=== PATIENT | male | born 1965 | race Caucasian/White ===

== ENCOUNTER 2016-12-19 21:02 | Emergency (ER) | payer MEDICAID, OTHER ==
[~2016-12-19] VITALS: Ht 170.2 cm; Wt 83.5 kg
[2016-12-19 21:05] VITALS: Ht 170.2 cm; Wt 83.5 kg
[2016-12-19] MEDS ORDERED: CEPHALEXIN 500 MG CAP PO ONE (22:00)
[2016-12-19] MEDS ORDERED: TRIMETHOPRIM/SULFAMETHOX (DS) TAB PO ONE (22:00)
[2016-12-19] MEDS ORDERED: LIDOCAINE 1% (MDV) 20 ML INJ SC ONE (22:00)
[2016-12-19] MEDS ORDERED: CEPH-443 PO (22:14)
[2016-12-19] MEDS ORDERED: IBUP-1542 PO (22:14)
[2016-12-19] MEDS ORDERED: SULF1TAB31 PO (22:14)
--- NOTE | 2016-12-19 22:29 | ERD ---
ER Documentation Chief Complaint Date/Time DATE: 12/19/16 TIME: 22:20 Chief Complaint right knee swelling and pain since this am with blister HPI 51-year-old male complaining of right knee pain and swelling 3 days. He noticed a blister this morning. 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 Able to ambulate. Denies any fall or trauma. Denies chills. Denies history of diabetes or any other medical history. ROS All systems reviewed and are negative except as per history of present illness. Medications Home Meds Active Scripts Sulfamethoxazole/Trimethoprim* (Bactrim Ds* Tablet) 1 Each Tablet, 1 TAB PO BID , #14 TAB Prov:LINDA MADDOX NP 12/19/16 Cephalexin* (Keflex*) 500 Mg Capsule, 500 MG PO QID for 7 Days, CAP Prov:LINDA MADDOX. AUTOMATION TECHNOLOGIST 12/19/16 Ibuprofen* (Motrin*) 600 Mg Tab, 600 MG PO Q6H Y for PAIN AND OR ELEVATED TEMP, #30 TAB Prov:LINDA MADDOX AUTOMATION TECHNOLOGIST 12/19/16 PMhx/Soc Medical and Surgical Hx: pt denies Medical Hx History of Surgery: No Anesthesia Reaction: No Hx Neurological Disorder: No Hx Respiratory Disorders: No Hx Cardiac Disorders: No Hx Psychiatric Problems: No Hx Miscellaneous Medical Probl: No Hx Alcohol Use: No Hx Substance Use: No Hx Tobacco Use: Yes Smoking Status: Current every day smoker Physical Exam Vitals Vital Signs Date Time Temp Pulse Resp B/P Pulse Ox O2 Delivery O2 Flow Rate FiO2 12/19/16 21:05 100.4 94 20 142/66 94 Physical Exam General: Well-developed, well-nourished, conscious and coherent, in no distress Skin: Warm and dry without rash, good texture and turgor Head: Normocephalic without evidence of trauma Eyes: Sclera and conjunctivae normal; pupils equal, round, and reactive to light; extraocular movements are intact Chest: Normal AP diameter. Good expansion without retractions. Nontender. Lungs are clear to auscultate bilaterally with good tidal volume Heart: Regular rate and rhythm. No murmur, rub, or gallops heard Extremities: Anterior right knee erythematous, swollen, warm to touch. A 1.5 cm pustule is present. Full range of motion without pain. Good strength bilaterally. No clubbing, cyanosis, or edema. Peripheral pulses are intact. Sensation intact Neuro: Alert and oriented 4, GCS 15. Cranial nerves grossly intact. Motor and sensory exams nonfocal. Moves all extremities. Speech clear. Gait normal Results 24 hrs Current Medications Medications (Trade) Dose Ordered Sig/Pako Route PRN Reason Start Time Stop Time Status Last Admin Dose Admin Lidocaine (Xylocaine 1% (Mdv) 20 ml) 20 ml ONCE ONCE SC 12/19/16 22:00 12/19/16 22:01 DC Cephalexin (Keflex) 500 mg ONCE ONCE PO 12/19/16 22:00 12/19/16 22:01 DC 12/19/16 21:52 Trimethoprim/ Sulfamethoxazole (Bactrim (Ds)) 1 tab ONCE ONCE PO 12/19/16 22:00 12/19/16 22:01 DC 12/19/16 21:52 Procedures/[facility] Procedure note: Incision and Drainage Verbal consent obtained for incision and drainage of patient's abscess. The area was prepped with Betadine. Lidocaine 1% was infiltrated for local anesthesia. After appropriate anesthesia, incision was made using #11 blade. Small amount of purulent discharge was drained from the abscess. The abscess was probed for loculation. The wound was then cleaned and dressed. Patient tolerated procedure well. Medical decision-making: Well-appearing 51-year-old male present ED with right knee pain and swelling. Likely patient has a septic bursitis. Low suspicion for septic joint, as patient is able to have full range of motion of the right knee without pain. Patient appears well, stable for discharge and outpatient management. Medical decision making shared with patient and family. Education provided to patient and family. Patient and family expressed understanding of the plan. Medications on discharge: Keflex, Bactrim DS, ibuprofen. Follow-up: Return to the ED in 2 days for wound check and follow-up. The case was reviewed and discussed with Dr. Johnston, who also examined the patient, who agrees with the plan of care including labs, treatment, and advanced imaging as appropriate. Disclaimer: Inadvertent spelling and grammatical errors are likely due to EHR/ dictation software use and do not reflect on the overall quality of patient care. Also, please note that the electronic time recorded on this note does not necessarily reflect the actual time of the patient encounter. Departure Diagnosis: Primary Impression: Septic infrapatellar bursitis of right knee Condition: Stable Patient Instructions: Cellulitis, Abscess, Incision And Drainage Ref[facility] Usted se castelan hecho un examen mdico de control que le indica que no est en tyson condicin que requiera tratamiento urgente en el Departamento de Emergencia. Un estudio ms profundo y el tratamiento de cartwright condicin pueden esperar sin ningn riesgo hasta que usted sea atendida/o en el consultorio de cartwright mdico o tyson cl adrien. Es responsabilidad suya arreglar tyson allison para el seguimiento del nilson. MANEJO DE CONDICIONES NO URGENTES EN EL FUTURO 1) Si usted tiene un mdico de atencin primaria: Usted debera llamar a cartwright mdico de atencin primaria antes de venir al departamento de emergencia. Despus de las horas de consultorio, cartwright doctor o cartwright asociado/a est disponible por telfono. El mdico o enfermero de eugenio en el servicio telefnico puede asesorarle por love medio para atender el problema, o nilson contrario se puede programar tyson allison. 2) Si usted no tiene un mdico de atencin primaria: Llame al mdico o clnica de referencia que aparece abajo prieto las horas de consultorio para hacer tyson allison para que le vean. CLINICAS: [facility] [phone] [facility] [phone] [address] [facility] [phone] [address] [facility]. [place] [id number] [phone] [facility]. [facility] [phone] [id number] [facility]. [phone] [address] Additional Instructions: Regrese a estas instalaciones dentro de [facility] [place] para un examen de seguimiento.Regrese antes si cartwright condicin se empeora. LINDA MADDOX. AUTOMATION TECHNOLOGIST Dec 19, 2016 22:29
[2016-12-22] MEDS ORDERED: CLIN-73 PO (00:41)
== END 2016-12-19 22:25 | disposition home or self-care (01) ==
LOC: FTE 21:02
DX: M71.161 Other infective bursitis, right knee (principal); F17.210 Nicotine dependence, cigarettes, uncomplicated
CPT/HCPCS: 10060; Z7502; Z7610

== ENCOUNTER 2016-12-21 18:55 | Emergency (ER) | END 2016-12-22 01:30 | disposition home or self-care (01) | DX: L03.115 Cellulitis of right lower limb (principal); F17.210 Nicotine dependence, cigarettes, uncomplicated | CPT/HCPCS: 96374; 96375; Z7502 ==

== ENCOUNTER 2016-12-22 16:40 | Inpatient (IN) | payer MEDICAID ==
[~2016-12-22] VITALS: Ht 175.3 cm; Wt 88.9 kg
[~2016-12-22 16:40] MED LIST: CEPH-443 PO; CLIN-73 PO; IBUP-1542 PO; SULF1TAB31 PO
[2016-12-22 16:49] VITALS: Ht 175.3 cm; Wt 88.9 kg
[2016-12-22] MEDS ORDERED: SODIUM CHLORIDE 0.9% 1L BAG IV* STA (17:55)
[2016-12-22] MEDS ORDERED: CEFEPIME 2GM/50 ML (PMX) 50 ML IVPB STA (17:55)
[2016-12-22] MEDS ORDERED: ACETAMINOPHEN 325 MG TAB PO ONE (18:00)
[2016-12-22] MEDS ORDERED: VANCOMYCIN 1 GM (PMX) 250 ML IVPB ONE (18:00)
[2016-12-22 18:50] LABS: BASOPHIL # 0.1 10^3/ul (0.0-0.1); BASOPHILS % 0.4 % (0.0-2.0); EOSINOPHILS # 0.1 10^3/ul (0.0-0.5); EOSINOPHILS % 0.7 % (0.0-7.0); HEMATOCRIT 36.5 % (42.0-52.0); LYMPHOCYTES # 1.5 10^3/ul (0.8-2.9); LYMPHOCYTES % 11.2 % (15.0-51.0); MEAN CORPUSCULAR HEMOGLOBIN 30.2 pg (29.0-33.0); MEAN CORPUSCULAR HGB CONC 32.9 g/dl (32.0-37.0); MEAN CORPUSCULAR VOLUME 91.7 fl (82.0-101.0); MEAN PLATELET VOLUME 9.2 fl (7.4-10.4); MONOCYTE # 1.2 10^3/ul (0.3-0.9); NEUTROPHIL # 10.1 10^3/ul (1.6-7.5); PLATELET COUNT 364 10^3/UL (140-415); RED BLOOD COUNT 3.98 10^6/ul (4.70-6.10); RED CELL DISTRIBUTION WIDTH 13.1 % (11.5-14.5)
[2016-12-22] MEDS ORDERED: ACETAMINOPHEN 325 MG TAB PO PRN (19:00)
[2016-12-22] MEDS ORDERED: ONDANSETRON 4 MG INJ IV PRN ×2 (19:00→21:00)
[2016-12-22 19:06] LABS: INR 1.08; PT RATIO 1.1
[2016-12-22 19:07] LABS: PARTIAL THROMBOPLASTIN TIME 40.6 Sec (25.0-35.0)
[2016-12-22 19:12] LABS: ALANINE AMINOTRANSFERASE 70 IU/L (13-69); ALBUMIN 3.1 g/dl (3.3-4.9); ALBUMIN/GLOBULIN RATIO 0.96; ALKALINE PHOSPHATASE 125 IU/L (42-121); ANION GAP 17 (8-16); ASPARTATE AMINO TRANSFERASE 67 IU/L (15-46); BLOOD UREA NITROGEN 8 mg/dl (7-20); CALCIUM 8.3 mg/dl (8.4-10.2); CARBON DIOXIDE 26 mmol/L (21-31); CHLORIDE 101 mmol/L (97-110); CREATININE 0.72 mg/dl (0.61-1.24); GLUCOSE 106 mg/dl (70-220); POTASSIUM 3.6 mmol/L (3.5-5.1); SODIUM 140 mmol/L (135-144); TOTAL PROTEIN 6.3 g/dl (6.1-8.1)
[2016-12-22 19:16] VITALS: PULSE 74; TEMP 99
[2016-12-22 19:27] LABS: TROPONIN-I < 0.012 ng/ml (0.00-0.12)
[2016-12-22 20:05] VITALS: BP 115/56; RESP 18
--- NOTE | 2016-12-22 20:58 | ERA ---
ER Documentation Chief Complaint Date/Time DATE: 12/22/16 TIME: 20:56 Chief Complaint 3R VISIT FOR F/U RIGHT KNEE SWELLING, PER PT IMPROVED HPI Patient is a 51-year-old male who presents with right knee and leg swelling. This is been going on for approximately 1 week and he has had 3 visits to the ER for the same already. On the first visit he had an incision and drainage performed to a preseptal bursitis and was given Bactrim and Keflex which he has been taking. Unfortunately his infection is gotten worse and now it is tracking down his leg. He has had fevers as well. The patient has pain in the right leg. ROS All systems reviewed and are negative except as per history of present illness. Medications Home Meds Active Scripts Clindamycin Hcl* (Clindamycin Hcl*) 300 Mg Capsule, 300 MG PO TID for 10 Days, CAP Prov:PERRI LIMA TEXTILE CONSERVATOR 12/22/16 Sulfamethoxazole/Trimethoprim* (Bactrim Ds* Tablet) 1 Each Tablet, 1 TAB PO BID , #14 TAB Prov:LINDA MADDOX. TEXTILE CONSERVATOR 12/19/16 Cephalexin* (Keflex*) 500 Mg Capsule, 500 MG PO QID for 7 Days, CAP Prov:LINDA MADDOX. TEXTILE CONSERVATOR 12/19/16 Ibuprofen* (Motrin*) 600 Mg Tab, 600 MG PO Q6H Y for PAIN AND OR ELEVATED TEMP, #30 TAB Prov:LINDA MADDOX. TEXTILE CONSERVATOR 12/19/16 Allergies Allergies: Coded Allergies: No Known Allergy (Unverified , 12/21/16) PMhx/Soc Medical and Surgical Hx: pt denies Medical Hx, pt denies Surgical Hx History of Surgery: No Anesthesia Reaction: No Hx Neurological Disorder: No Hx Respiratory Disorders: No Hx Cardiac Disorders: No Hx Psychiatric Problems: No Hx Miscellaneous Medical Probl: No Hx Alcohol Use: No Hx Substance Use: No Hx Tobacco Use: Yes Smoking Status: Current every day smoker FmHx Family History: No diabetes Physical Exam Vitals Vital Signs Date Time Temp Pulse Resp B/P Pulse Ox O2 Delivery O2 Flow Rate FiO2 12/22/16 16:49 100.5 88 18 121/85 99 Physical Exam Const: Mild distress secondary to pain Head: Atraumatic Eyes: Normal Conjunctiva ENT: Normal External Ears, Nose and Mouth. Neck: Full range of motion..~ No meningismus. Resp: Clear to auscultation bilaterally Cardio: Regular rate and rhythm, no murmurs Abd: Soft, non tender, non distended. Normal bowel sounds Skin: Cellulitis of the right knee down the right carrillo with warm to touch and induration, no obvious abscess Back: No midline or flank tenderness Ext: No cyanosis, or edema Neur: Awake and alert Psych: Normal Mood and Affect Result Diagram: 12/22/16182912/22/161829 Results 24 hrs Laboratory Tests Test 12/22/16 18:30 White Blood Count 13.010^3/ul Red Blood Count 3.9810^6/ul Hemoglobin 12.0g/dl Hematocrit 36.5% Mean Corpuscular Volume 91.7fl Mean Corpuscular Hemoglobin 30.2pg Mean Corpuscular Hemoglobin Concent 32.9g/dl Red Cell Distribution Width 13.1% Platelet Count 52629^3/UL Mean Platelet Volume 9.2fl Neutrophils % 78.0% Lymphocytes % 11.2% Monocytes % 9.0% Eosinophils % 0.7% Basophils % 0.4% Nucleated Red Blood Cells % 0.0/100WBC Neutrophils # 10.110^3/ul Lymphocytes # 1.510^3/ul Monocytes # 1.210^3/ul Eosinophils # 0.110^3/ul Basophils # 0.110^3/ul Nucleated Red Blood Cells # 0.010^3/ul Prothrombin Time 14.0Sec Prothrombin Time Ratio 1.1 INR International Normalized Ratio 1.08 Activated Partial Thromboplast Time 40.6Sec Sodium Level 140mmol/L Potassium Level 3.6mmol/L Chloride Level 101mmol/L Carbon Dioxide Level 26mmol/L Anion Gap 17 Blood Urea Nitrogen 8mg/dl Creatinine 0.72mg/dl Glucose Level 106mg/dl Lactic Acid Level 1.3mmol/L Calcium Level 8.3mg/dl Total Bilirubin 0.0mg/dl Direct Bilirubin 0.00mg/dl Indirect Bilirubin 0.0mg/dl Aspartate Amino Transf (AST/SGOT) 67IU/L Alanine Aminotransferase (ALT/SGPT) 70IU/L Alkaline Phosphatase 125IU/L Troponin I < 0.012ng/ml Total Protein 6.3g/dl Albumin 3.1g/dl Globulin 3.20g/dl Albumin/Globulin Ratio 0.96 Current Medications Medications (Trade) Dose Ordered Sig/Pako Route PRN Reason Start Time Stop Time Status Last Admin Dose Admin Sodium Chloride 2670 ml 2,670 ml BOLUS OVER 2 HOURS STAT IV* 12/22/16 17:55 12/22/16 17:57 DC 12/22/16 18:50 Cefepime HCl 50 ml @ 100 mls/hr ONCE STAT IVPB 12/22/16 17:55 12/22/16 18:24 DC 12/22/16 18:50 Vancomycin HCl (Vancocin) 250 ml @ 125 mls/hr ONCE ONCE IVPB 12/22/16 18:00 12/22/16 19:59 DC 12/22/16 19:32 Acetaminophen (Tylenol Tab) 650 mg ONCE ONCE PO 12/22/16 18:00 12/22/16 18:01 DC 12/22/16 18:54 Procedures/MDM Patient is a 51-year-old male who presents with acute cellulitis of the right lower extremity. He has failed outpatient treatment. At this point I doubt sepsis. The patient was given broad-spectrum antibiotics with vancomycin and cefepime as he has failed outpatient treatment. The patient will be admitted to the care of Dr. Carter from the panel team to a medical surgical bed for continued IV antibiotics. Departure Diagnosis: Primary Impression: Failure of outpatient treatment Additional Impression: Cellulitis Qualified Code: L03.115 - Cellulitis of right lower extremity Condition: LUIS Esteban MD Dec 22, 2016 20:58
[2016-12-22] MEDS ORDERED: morphine 4 MG/ML VIAL IV PRN (21:00)
[2016-12-22] MEDS ORDERED: VANCOMYCIN IV PER PHARMACY XX SCH (21:00)
[2016-12-22] MEDS ORDERED: VANCOMYCIN 750 MG in SOD CHLORIDE 0.9% 150 ML IVPB ONE (22:30)
[2016-12-23 02:10] VITALS: BP 125/60; RESP 20
[2016-12-23 08:23] VITALS: BP 127/61; RESP 20
[2016-12-23] MEDS: VANCOMYCIN 1.25 GM in SOD CHLORIDE 0.9% 250 ML IVPB SCH ×2 (09:05→21:52)
--- NOTE | 2016-12-23 09:33 | HP ---
Date/Time of Note Date/Time of Note DATE: 12/23/16 TIME: 09:21 Assessment/Plan VTE Prophylaxis VTE Prophylaxis Intervention: LMWH Lines/Catheters [facility] Saline Lock Assessment/Plan Assessment/Plan 1. Sepsis, as evidenced by fever and leukocytosis: secondary to right knee cellulitis/prepatellar bursitis - will attempt to send wound culture. Will follow up on the urine culture and blood culture sent in the ER. - Will be placed on broad-spectrum antibiotic. Will place an ID consult -We will order right lower extremity Doppler ultrasound to rule out DVT 2. Elevated transaminases: We will follow up on the a.m. lab so for now will just monitor. Additional workup including imaging as needed HPI/ROS Admit Date/Time Admit Date/Time Dec 22, 2016 at 18:38 Hx of Present Illness This is a 51-year-old male with no significant past medical history who presented to the emergency department complaining of right knee wound, swelling and tenderness. He also reported swelling involving his right carrillo. Patient was seen here in our ER a couple of times over the past 4 days for similar issue. Initially he was discharged on Keflex and Bactrim after an I&D was performed with instruction to come back within 2 days if no improvement or for worsening symptom. He came back 2 days ago saying that it did actually got worse. At that time his Keflex and Bactrim were switched for clindamycin. Patient has now returned to ER after 2 days because he is not seeing any improvement. X-ray from 2 days ago showed No fracture or dislocation, small joint effusion and periarticular soft tissue swelling greatest anteriorly. In the ER today, he was febrile with a temperature 100.5 and had a white count of 13,000. PMH/Family/Social Social History Smoking Status: Current every day smoker Exam/Review of Systems Vital Signs Vitals Vital Signs Date Time Temp Pulse Resp B/P Pulse Ox O2 Delivery O2 Flow Rate FiO2 12/23/16 08:23 98.5 77 20 127/61 96 12/22/16 19:16 Room Air Intake and Output 12/22/16 12/22/16 12/23/16 15:00 23:00 07:00 Intake Total 250 ml 600 ml Balance 250 ml 600 ml Exam Constitutional: alert, oriented, well developed Head: atraumatic, normocephalic Eyes: EOMI, PERRL Respiratory: clear to auscultation, normal air movement Cardiovascular: nl pulses, regular rate and rhythm Gastrointestinal: non-tender, soft Extremities: other (There is about 3+ pitting edema in the right lower extremity. There is a small open wound on the right knee, which appears wet with no significant drainage) Labs Result Diagram: 12/22/16182912/22/161829 Medications Medications Current Medications Morphine Sulfate (morphine) 2 mg Q4H PRN IV pain Last administered on 12/23/16 09:10; Admin Dose 2 MG; Start 12/22/16 at 21:00 Ondansetron HCl 4 mg 4 mg Q6H PRN IV NAUSEA AND/OR VOMITING; Start 12/22/16 at 21:00 Vancomycin HCl 1.25 gm/Sodium Chloride 250 ml @ 83.333 mls/ hr Q12H IVPB Last administered on 12/23/16 09:05; Admin Dose 83.333 MLS/HR; Start 12/23/16 at 08:00 Cefepime HCl (Maxipime 1gm/50 ml (Pmx)) 50 ml @ 100 mls/hr Q12 IVPB ; Start 12/23/16 at 09:30 MAUREEN MAST MD Dec 23, 2016 09:31
[2016-12-23] MEDS: CEFEPIME 1GM/50 ML (PMX) 50 ML IVPB SCH ×2 (10:10→20:49)
[2016-12-23] MEDS: ENOXAPARIN 40 MG/0.4 ML SYG SC SCH (10:11)
[2016-12-23 10:21] LABS: BASOPHIL # 0.1 10^3/ul (0.0-0.1); BASOPHILS % 0.4 % (0.0-2.0); EOSINOPHILS # 0.1 10^3/ul (0.0-0.5); EOSINOPHILS % 0.9 % (0.0-7.0); HEMOGLOBIN 12.4 g/dl (14.0-18.0); LYMPHOCYTES # 1.8 10^3/ul (0.8-2.9); LYMPHOCYTES % 14.8 % (15.0-51.0); MEAN CORPUSCULAR HEMOGLOBIN 30.1 pg (29.0-33.0); MEAN CORPUSCULAR HGB CONC 32.6 g/dl (32.0-37.0); MEAN CORPUSCULAR VOLUME 92.2 fl (82.0-101.0); MEAN PLATELET VOLUME 8.9 fl (7.4-10.4); MONOCYTES % 8.3 % (0.0-11.0); NEUTROPHIL # 9.1 10^3/ul (1.6-7.5); NEUTROPHILS % 74.8 % (39.0-77.0); PLATELET COUNT 383 10^3/UL (140-415); RED BLOOD COUNT 4.12 10^6/ul (4.70-6.10); RED CELL DISTRIBUTION WIDTH 13.3 % (11.5-14.5); WHITE BLOOD COUNT 12.1 10^3/ul (4.8-10.8)
[2016-12-23 10:39] LABS: ALBUMIN 3.4 g/dl (3.3-4.9); ALBUMIN/GLOBULIN RATIO 1.06; BILIRUBIN,INDIRECT 0.1 mg/dl (0-1.1); BILIRUBIN,TOTAL 0.1 mg/dl (0.2-1.3); CALCIUM 8.5 mg/dl (8.4-10.2); CREATININE 0.69 mg/dl (0.61-1.24); POTASSIUM 3.7 mmol/L (3.5-5.1); TOTAL PROTEIN 6.6 g/dl (6.1-8.1)
--- NOTE | 2016-12-23 10:40 | RADRPT ---
PROCEDURE: US Lower extremity Venous. CLINICAL INDICATION: Right leg edema TECHNIQUE: Multiple sonographic images of the right lower extremity deep venous system was obtaine d utilizing grayscale, color-flow, compressive sonography and doppler imaging with augmentation. Th e images were reviewed on a PACS workstation. COMPARISON: None. FINDINGS: There is normal compressibility and flow within the right common femoral, femoral, posterior tibial, peroneal and popliteal veins. RPTAT: AA IMPRESSION: No sonographic evidence for deep venous thrombosis. .Darvin Watkins MD, MD Date Time Electronically viewed and signed by .Darvin Watkins MD, on 12/23/2016 10:40 .S/
[2016-12-23] MEDS: SILVER SULFADIAZINE 1% 25 GM CR TOP SCH (14:35)
--- NOTE | 2016-12-23 14:50 | PN ---
Date/Time of Note Date/Time of Note DATE: 12/23/16 TIME: 14:42 Assessment/Plan VTE Prophylaxis VTE Prophylaxis Intervention: LMWH Lines/Catheters [facility] Saline Lock Assessment/Plan Chief Complaint/Hosp Course Assessment and plan:51-year-old male with no significant past medical history who presented to the emergency department complaining of right knee wound, cellulitis swelling and tenderness with signs of sepsis. 1. Sepsis: Likely secondary to patient's knee fluid and cellulitis. Ultrasound of lower extremity was negative for DVT. Patient failed outpatient antibiotic treatment. -Continue broad-spectrum antibiotics. Follow-up final culture results. Tylenol as needed pain and fevers. Pain control medications as needed. 2. Elevated LFTs colons trending down close to normal levels now. -Will consider right upper extremity ultrasound. Also check Hep panel. Problems: Exam/Review of Systems Vital Signs Vitals Vital Signs Date Time Temp Pulse Resp B/P Pulse Ox O2 Delivery O2 Flow Rate FiO2 12/23/16 08:23 98.5 77 20 127/61 96 12/22/16 19:16 Room Air Intake and Output 12/22/16 12/22/16 12/23/16 15:00 23:00 07:00 Intake Total 250 ml 600 ml Balance 250 ml 600 ml Exam Constitutional: alert, oriented, well developed Head: atraumatic, normocephalic Eyes: EOMI, PERRL Respiratory: clear to auscultation, normal air movement Cardiovascular: nl pulses, regular rate and rhythm Gastrointestinal: non-tender, soft Extremities: other (There is about 2+ pitting edema in the right lower extremity. Positive warmth and tenderness on anterior lower extremity, there is a small open wound on the right knee, covered with bandage, no significant drainage) Results Result Diagram: 12/23/16 0956 12/23/16 0956 Results 24 hrs Laboratory Tests Test 12/22/16 18:30 12/22/16 20:43 12/22/16 22:38 12/23/16 09:56 White Blood Count 13.0 H 12.1 H Red Blood Count 3.98 L 4.12 L Hemoglobin 12.0 L 12.4 L Hematocrit 36.5 L 38.0 L Mean Corpuscular Volume 91.7 92.2 Mean Corpuscular Hemoglobin 30.2 30.1 Mean Corpuscular Hemoglobin Concent 32.9 32.6 Red Cell Distribution Width 13.1 13.3 Platelet Count 364 383 Mean Platelet Volume 9.2 8.9 Neutrophils % 78.0 H 74.8 Lymphocytes % 11.2 L 14.8 L Monocytes % 9.0 8.3 Eosinophils % 0.7 0.9 Basophils % 0.4 0.4 Nucleated Red Blood Cells % 0.0 0.0 Neutrophils # 10.1 H 9.1 H Lymphocytes # 1.5 1.8 Monocytes # 1.2 H 1.0 H Eosinophils # 0.1 0.1 Basophils # 0.1 0.1 Nucleated Red Blood Cells # 0.0 0.0 Prothrombin Time 14.0 Prothrombin Time Ratio 1.1 INR International Normalized Ratio 1.08 Activated Partial Thromboplast Time 40.6 H Sodium Level 140 143 Potassium Level 3.6 3.7 Chloride Level 101 106 Carbon Dioxide Level 26 25 Anion Gap 17 H 16 Blood Urea Nitrogen 8 7 Creatinine 0.72 0.69 Glucose Level 106 95 Lactic Acid Level 1.3 0.8 1.3 Calcium Level 8.3 L 8.5 Total Bilirubin 0.0 L 0.1 L Direct Bilirubin 0.00 0.00 Indirect Bilirubin 0.0 0.1 Aspartate Amino Transf (AST/SGOT) 67 H 41 Alanine Aminotransferase (ALT/SGPT) 70 H 64 Alkaline Phosphatase 125 H 124 H Troponin I < 0.012 Total Protein 6.3 6.6 Albumin 3.1 L 3.4 Globulin 3.20 3.20 Albumin/Globulin Ratio 0.96 1.06 Medications Medications Current Medications Morphine Sulfate (morphine) 2 mg Q4H PRN IV pain Last administered on 12/23/16 09:10; Admin Dose 2 MG; Start 12/22/16 at 21:00 Ondansetron HCl 4 mg 4 mg Q6H PRN IV NAUSEA AND/OR VOMITING; Start 12/22/16 at 21:00 Vancomycin HCl 1.25 gm/Sodium Chloride 250 ml @ 83.333 mls/ hr Q12H IVPB Last administered on 12/23/16 09:05; Admin Dose 83.333 MLS/HR; Start 12/23/16 at 08:00 Cefepime HCl (Maxipime 1gm/50 ml (Pmx)) 50 ml @ 100 mls/hr Q12 IVPB Last administered on 12/23/16 10:10; Admin Dose 100 MLS/HR; Start 12/23/16 at 09:30 Silver Sulfadiazine (Thermazene 1% 25 Gm) 1 applic DAILY TOP Last administered on 12/23/16 14:35; Admin Dose 1 APPLIC; Start 12/23/16 at 11:00 Enoxaparin Sodium (Lovenox) 40 mg DAILY SC Last administered on 12/23/16 10:11 ; Admin Dose 40 MG; Start 12/23/16 at 09:30 Miscellaneous Information (*Rx Drug Level Order Reminder*) VANCOMYIN 12/24 AT 0700 ONCE ONCE XX ; Start 12/24/16 at 07:00; Stop 12/24/16 at 07:01 JARAD GILBERT Dec 23, 2016 14:50
[2016-12-23 15:44] VITALS: BP 133/63; RESP 20
[2016-12-23 16:14] LABS: HAAIG REFLEX REFLEX FILED
[2016-12-23 17:48] LABS: HEPATITIS B CORE ANTIBODY NEGATIVE (NEGATIVE)
[2016-12-23 20:04] VITALS: BP 130/60; RESP 18
[2016-12-23] MEDS ORDERED: HYDROCODONE/APAP (5/325) TAB PO PRN (21:00)
[2016-12-23] MEDS: ACETAMINOPHEN 325 MG TAB PO PRN (21:52)
[2016-12-24 02:05] VITALS: BP 121/59; RESP 17
[2016-12-24 07:21] LABS: BASOPHIL # 0.1 10^3/ul (0.0-0.1); BASOPHILS % 0.5 % (0.0-2.0); EOSINOPHILS # 0.3 10^3/ul (0.0-0.5); EOSINOPHILS % 2.8 % (0.0-7.0); HEMATOCRIT 38.8 % (42.0-52.0); HEMOGLOBIN 12.8 g/dl (14.0-18.0); LYMPHOCYTES # 2.2 10^3/ul (0.8-2.9); MEAN CORPUSCULAR HEMOGLOBIN 30.4 pg (29.0-33.0); MEAN CORPUSCULAR VOLUME 92.2 fl (82.0-101.0); MEAN PLATELET VOLUME 8.7 fl (7.4-10.4); MONOCYTE # 0.9 10^3/ul (0.3-0.9); MONOCYTES % 8.3 % (0.0-11.0); NEUTROPHIL # 7.4 10^3/ul (1.6-7.5); NEUTROPHILS % 67.5 % (39.0-77.0); PLATELET COUNT 410 10^3/UL (140-415); RED BLOOD COUNT 4.21 10^6/ul (4.70-6.10); WHITE BLOOD COUNT 10.9 10^3/ul (4.8-10.8)
--- NOTE | 2016-12-24 07:37 | RADRPT ---
PROCEDURE: US Abdomen (right upper quadrant). CLINICAL INDICATION: Elevated liver function tests. TECHNIQUE: Multiple real-time longitudinal and transverse images of the right upper quadrant of th e abdomen were acquired utilizing a curved array transducer. Images were reviewed on a high-resoluti on PACS workstation. COMPARISON: None FINDINGS: The liver is normal in size and demonstrate slight coarsening of the echotexture suggesting mild joleen atosis. without focal mass or intrahepatic biliary dilatation. There is normal hepatopedal flow wit hin the main portal vein. The gallbladder is well displayed without filling defects or wall thicken ing. The common bile duct measures 3.1 mm in maximal dimension. The visualized portions of the florentino creas are unremarkable with obscuration of the tail of the pancreas. No free fluid is identified. The right kidney measures 11.3 cm in length. There is normal echogenicity within the right kidney. There is no perinephric fluid collection. No hydronephrosis, mass, or calculus is seen. IMPRESSION: 1. Mildly coarsened echotexture of the liver parenchyma suggesting mild hepatic steatosis. 2. The gallbladder, pancreas and biliary tree appear unremarkable. RPTAT: AACC Physician Bree Date Time Electronically viewed and signed by Physician Bree on 12/24/2016 07:37 SELENE/
[2016-12-24 08:00] VITALS: BP 133/68; RESP 20
[2016-12-24 08:25] LABS: CALCIUM 8.6 mg/dl (8.4-10.2); CREATININE 0.7 mg/dl (0.61-1.24); POTASSIUM 3.8 mmol/L (3.5-5.1)
[2016-12-24] MEDS: CEFEPIME 1GM/50 ML (PMX) 50 ML IVPB SCH ×2 (08:31→20:39)
[2016-12-24] MEDS: SILVER SULFADIAZINE 1% 25 GM CR TOP SCH (08:31)
[2016-12-24] MEDS: ENOXAPARIN 40 MG/0.4 ML SYG SC SCH (08:32)
[2016-12-24] MEDS: VANCOMYCIN 1.25 GM in SOD CHLORIDE 0.9% 250 ML IVPB SCH (08:36)
[2016-12-24 12:30] VITALS: BP_SYST 107; BP_SYST 119; BP_DIAS 58; BP_DIAS 63; RESP 18
[2016-12-24] MEDS ORDERED: VANCOMYCIN 1 GM in NS 250 ML IVPB SCH ×2 (16:00→18:00)
--- NOTE | 2016-12-24 16:16 | PN ---
Date/Time of Note Date/Time of Note DATE: 12/24/16 TIME: 16:14 Assessment/Plan VTE Prophylaxis VTE Prophylaxis Intervention: LMWH Lines/Catheters IV [facility] Urinary Cath still in place: No Assessment/Plan Chief Complaint/Hosp Course Assessment and plan:51-year-old male with no significant past medical history who presented to the emergency department complaining of right knee wound, cellulitis swelling and tenderness with signs of sepsis. 1. Sepsis: Likely secondary to patient's knee fluid and cellulitis. Ultrasound of lower extremity was negative for DVT. Patient failed outpatient antibiotic treatment. Overall improving cellulitis. Sepsis has resolved -Continue broad-spectrum antibiotics. Follow-up final culture results. Tylenol as needed pain and fevers. Pain control medications as needed. 2. Elevated LFTs -down to normal levels now. Hepatitis panel negative. Right upper quadrant ultrasound also showed mild fatty liver - Continue to monitor for now Dispo: Likely home in 24 hours if redness and swelling symptoms improved. Problems: Subjective 24 Hr Interval Summary Free Text/Dictation Patient with less right lower extremity pain. Able to ambulate in the hallway. Exam/Review of Systems Vital Signs Vitals Vital Signs Date Time Temp Pulse Resp B/P Pulse Ox O2 Delivery O2 Flow Rate FiO2 12/24/16 12:30 98.6 88 18 119/63 96 12/22/16 19:16 Room Air Intake and Output 12/23/16 12/23/16 12/24/16 15:00 23:00 07:00 Intake Total 1250 ml 1030 ml Balance 1250 ml 1030 ml Exam Constitutional: alert, oriented, well developed Head: atraumatic, normocephalic Eyes: EOMI, PERRL Respiratory: clear to auscultation, normal air movement Cardiovascular: nl pulses, regular rate and rhythm Gastrointestinal: non-tender, soft Extremities: other (There is about 2+ pitting edema in the right lower extremity. Positive warmth and tenderness on anterior lower extremity, there is a small open wound on the right knee, covered with bandage, no significant drainage) Results Result Diagram: 12/24/16 0659 12/24/16 0659 Results 24 hrs Laboratory Tests Test 12/24/16 06:59 White Blood Count 10.9 H Red Blood Count 4.21 L Hemoglobin 12.8 L Hematocrit 38.8 L Mean Corpuscular Volume 92.2 Mean Corpuscular Hemoglobin 30.4 Mean Corpuscular Hemoglobin Concent 33.0 Red Cell Distribution Width 13.0 Platelet Count 410 Mean Platelet Volume 8.7 Neutrophils % 67.5 Lymphocytes % 20.0 Monocytes % 8.3 Eosinophils % 2.8 Basophils % 0.5 Nucleated Red Blood Cells % 0.0 Neutrophils # 7.4 Lymphocytes # 2.2 Monocytes # 0.9 Eosinophils # 0.3 Basophils # 0.1 Nucleated Red Blood Cells # 0.0 Sodium Level 144 Potassium Level 3.8 Chloride Level 106 Carbon Dioxide Level 25 Anion Gap 17 H Blood Urea Nitrogen 7 Creatinine 0.70 Glucose Level 94 Calcium Level 8.6 Vancomycin Level Trough 6.1 L Medications Medications Current Medications Morphine Sulfate (morphine) 2 mg Q4H PRN IV pain Last administered on 12/23/16 09:10; Admin Dose 2 MG; Start 12/22/16 at 21:00 Ondansetron HCl 4 mg 4 mg Q6H PRN IV NAUSEA AND/OR VOMITING; Start 12/22/16 at 21:00 Cefepime HCl (Maxipime 1gm/50 ml (Pmx)) 50 ml @ 100 mls/hr Q12 IVPB Last administered on 12/24/16 08:31; Admin Dose 100 MLS/HR; Start 12/23/16 at 09:30 Silver Sulfadiazine (Thermazene 1% 25 Gm) 1 applic DAILY TOP Last administered on 12/24/16 08:31; Admin Dose 1 APPLIC; Start 12/23/16 at 11:00 Enoxaparin Sodium (Lovenox) 40 mg DAILY SC Last administered on 12/24/16 08:32 ; Admin Dose 40 MG; Start 12/23/16 at 09:30 Acetaminophen (Tylenol Tab) 650 mg Q6H PRN PO PAIN AND OR ELEVATED TEMP Last administered on 12/23/16 21:52; Admin Dose 650 MG; Start 12/23/16 at 21:00 Acetaminophen/ Hydrocodone Bitart ([place] (5/325)) 1 tab Q4H PRN PO PAIN LEVEL 7 -10; Start 12/23/16 at 21:00 Miscellaneous Information VANCOMYCIN TROUGH 12/25 AT 1500 ONCE ONCE XX ; Start at 15:00; Stop 12/25/16 at 15:01 Vancomycin HCl (Vancocin) 250 ml @ 125 mls/hr Q8H IVPB ; Start 12/24/16 at 16:00 JARAD GILBERT Dec 24, 2016 16:15
[2016-12-24] MEDS: VANCOMYCIN 1 GM in NS 250 ML IVPB SCH (16:29)
[2016-12-24 20:30] VITALS: BP 136/62; RESP 18
[2016-12-24] MEDS: ACETAMINOPHEN 325 MG TAB PO PRN (20:44)
[2016-12-25] MEDS: VANCOMYCIN 1 GM in NS 250 ML IVPB SCH ×2 (00:18→09:14)
[2016-12-25 06:23] LABS: BASOPHIL # 0.1 10^3/ul (0.0-0.1); BASOPHILS % 0.9 % (0.0-2.0); EOSINOPHILS # 0.3 10^3/ul (0.0-0.5); HEMATOCRIT 42.7 % (42.0-52.0); HEMOGLOBIN 13.8 g/dl (14.0-18.0); LYMPHOCYTES # 2.8 10^3/ul (0.8-2.9); LYMPHOCYTES % 27.4 % (15.0-51.0); MEAN CORPUSCULAR HEMOGLOBIN 29.8 pg (29.0-33.0); MEAN CORPUSCULAR HGB CONC 32.3 g/dl (32.0-37.0); MEAN CORPUSCULAR VOLUME 92.2 fl (82.0-101.0); MEAN PLATELET VOLUME 9.2 fl (7.4-10.4); MONOCYTE # 0.8 10^3/ul (0.3-0.9); MONOCYTES % 7.8 % (0.0-11.0); NEUTROPHILS % 59.6 % (39.0-77.0); PLATELET COUNT 491 10^3/UL (140-415); RED BLOOD COUNT 4.63 10^6/ul (4.70-6.10); WHITE BLOOD COUNT 10.1 10^3/ul (4.8-10.8)
[2016-12-25 06:44] LABS: CREATININE 0.67 mg/dl (0.61-1.24); POTASSIUM 4.2 mmol/L (3.5-5.1)
[2016-12-25 08:30] VITALS: BP 125/67; RESP 19
[2016-12-25] MEDS: ENOXAPARIN 40 MG/0.4 ML SYG SC SCH (08:30)
[2016-12-25] MEDS: CEFEPIME 1GM/50 ML (PMX) 50 ML IVPB SCH (08:30)
[2016-12-25] MEDS: SILVER SULFADIAZINE 1% 25 GM CR TOP SCH (08:31)
--- NOTE | 2016-12-25 14:32 | PDOCDIS ---
Discharge Instructions CONDITION Patient Condition: Stable HOME CARE INSTRUCTIONS: Diet Instructions: Low Fat /Cholesterol ACTIVITY: Activity Restrictions: Slowly Increase Activity FOLLOW UP/APPOINTMENTS Follow-up Plan Please take your medications as prescribed. Please follow-up with your primary care doctor in the clinic in 1-2 weeks. JARAD GILBERT Dec 25, 2016 14:32
[2016-12-25] MEDS ORDERED: CEPH-443 PO (14:33)
--- NOTE | 2016-12-25 14:38 | DS ---
Date/Time of Note Date/Time of Note DATE: 12/25/16 TIME: 14:35 Discharge Summary Admission/Discharge Info Admit Date/Time Dec 22, 2016 at 18:38 Discharge Date/Time Discharge Diagnosis 1. Sepsis: Likely secondary to patient's knee fluid and cellulitis. Improved 2. Elevated LFTs -down to normal levels now. Hepatitis panel negative. Right upper quadrant ultrasound also showed mild fatty liver Patient Condition: Stable Hx of Present Illness This is a Hospital Course 51-year-old male with no significant past medical history who presented to the emergency department complaining of right knee wound, swelling and tenderness. He also reported swelling involving his right carrillo. Patient was seen here in our ER a couple of times over the past 4 days for similar issue. Initially he was discharged on Keflex and Bactrim after an I&D was performed with instruction to come back within 2 days if no improvement or for worsening symptom. He came back 2 days ago saying that it did actually got worse. At that time his Keflex and Bactrim were switched for clindamycin. Patient returned to ER after 2 days because he is not seeing any improvement. X-ray from 2 days ago showed No fracture or dislocation, small joint effusion and periarticular soft tissue swelling greatest anteriorly. He came in with a temperature 100.5 and an elevated white blood cell count of 13,000. So patient was admitted to [facility] floor, started on IV antibiotics. His wound culture was positive for staph aureus. Over the course of his hospital stay his pain symptoms and redness and swelling symptoms in his lower extremity improved, he was able to ambulate, tolerated p.o. diet. No fevers in the last 24 hours. He was also found with slightly elevated LFTs, which trended down by the time of discharge. His hepatitis panel was negative. His right upper quadrant ultrasound showed just some mild fatty liver. No signs of any abdominal pain. He will be discharged home today in improved condition and continue antibiotics for 7 more days. See below for discharge medication list. Home Meds Active Scripts Cephalexin* (Keflex*) 500 Mg Capsule, 500 MG PO QID for 7 Days, #28 CAP Prov:JARAD GILBERT S. 12/25/16 Ibuprofen* (Motrin*) 600 Mg Tab, 600 MG PO Q6H Y for PAIN AND OR ELEVATED TEMP, #30 TAB Prov:LINDA MADDOX [employer]PECTOR 12/19/16 Discontinued Scripts Clindamycin Hcl* (Clindamycin Hcl*) 300 Mg Capsule, 300 MG PO TID for 10 Days, CAP Prov:PERRI LIMA GAU[employer] INSPECTOR 12/22/16 Sulfamethoxazole/Trimethoprim* (Bactrim Ds* Tablet) 1 Each Tablet, 1 TAB PO BID , #14 TAB Prov:LINDA MADDOX [employer]AU[employer] INSPECTOR 12/19/16 Primary Care Provider Care Physician No Primary Time spent on discharge: > 30 minutes Pending Labs Laboratory Tests Test 12/25/16 04:38 White Blood Count 10.110^3/ul (4.8-10.8) Red Blood Count 4.6310^6/ul (4.70-6.10) Hemoglobin 13.8g/dl (14.0-18.0) Hematocrit 42.7% (42.0-52.0) Mean Corpuscular Volume 92.2fl (82.0-101.0) Mean Corpuscular Hemoglobin 29.8pg (29.0-33.0) Mean Corpuscular Hemoglobin Concent 32.3g/dl (32.0-37.0) Red Cell Distribution Width 13.0% (11.5-14.5) Platelet Count 81828^3/UL (140-415) Mean Platelet Volume 9.2fl (7.4-10.4) Neutrophils % 59.6% (39.0-77.0) Lymphocytes % 27.4% (15.0-51.0) Monocytes % 7.8% (0.0-11.0) Eosinophils % 3.0% (0.0-7.0) Basophils % 0.9% (0.0-2.0) Nucleated Red Blood Cells % 0.0/100WBC (0.0-0.0) Neutrophils # 6.010^3/ul (1.6-7.5) Lymphocytes # 2.810^3/ul (0.8-2.9) Monocytes # 0.810^3/ul (0.3-0.9) Eosinophils # 0.310^3/ul (0.0-0.5) Basophils # 0.110^3/ul (0.0-0.1) Nucleated Red Blood Cells # 0.010^3/ul (0.0-0.0) Sodium Level 144mmol/L (135-144) Potassium Level 4.2mmol/L (3.5-5.1) Chloride Level 105mmol/L (97-110) Carbon Dioxide Level 25mmol/L (21-31) Anion Gap 18 (8-16) Blood Urea Nitrogen 10mg/dl (7-20) Creatinine 0.67mg/dl (0.61-1.24) Glucose Level 88mg/dl (70-220) Calcium Level 9.0mg/dl (8.4-10.2) JARAD GILBERT Dec 25, 2016 14:38
[2016-12-25 15:20] VITALS: BP 134/70; RESP 18
--- NOTE | 2016-12-27 15:42 | EN ---
Date/Time of Note Date/Time of Note DATE: 12/27/16 TIME: 15:41 Event Note Medicine Medicine Event Note Patient's wound culture from December 25 came back positive for MRSA, best sensitivity to clindamycin p.o. antibiotics. Patient was called today on December 27, 2016 at home and told of these culture results, as well as to either go to his primary care doctor or come back to the ER to picker feeder this new prescription. He actually came 30 minutes to the emergency room later and picked up a prescription for clindamycin 300 mg p.o. 3 times daily for 10 more days to treat his MRSA wound infection. JARAD GILBERT Dec 27, 2016 15:42
== END 2016-12-25 15:37 | disposition home or self-care (01) | DRG 872 ==
LOC: FTE 16:40 → PP2 18:38
PROVIDERS: ADMIT Internal Medicine; ATTEND Internal Medicine
DX: A41.9 Sepsis, unspecified organism (principal); L03.115 Cellulitis of right lower limb; F17.200 Nicotine dependence, unspecified, uncomplicated; M25.561 Pain in right knee; R79.89 Other specified abnormal findings of blood chemistry
CPT/HCPCS: 36415; 76705; 80048; 80053; 80061; 80202; 83036; 83605; 84484; 85025; 85610; 85730; 86704; 86709; 86803; 87040; 87070; 87340; 93971; 96374; 96375; J0692; J1650; J2270; J3370; J7030; J7050